=== PATIENT | female | born 1960 | race Caucasian/White ===

== ENCOUNTER 2017-10-24 17:16 | Emergency (ER) | payer SELFPAY ==
[2017-10-24 17:54] LABS: #Basophils 0.1 thou/uL (0.0-0.2); #Eosinphils 0.2 thou/uL (0.0-0.7); #Lymphocytes 2.9 thou/uL (1.20-3.40); #Monocytes 0.5 thou/uL (0.11-0.59); #Neutrophils 5.7 thou/uL (1.40-6.50); %Basophils 1.4 % (0.0-1.0); %Eosinophils 1.9 % (0.0-10.0); %Monocytes 4.8 % (0.0-10.0); %Neutrophils 60.9 % (42.0-75.0); Hemoglobin 13.2 g/dL (12.0-16.0); Mean Corpuscular HGB CONC 32.6 g/dL (32.0-36.0); Mean Corpuscular Hemoglobin 30.3 pg (27.0-31.0); Mean Platelet Volume 7.4 fL (7.4-10.4); Platelet Count 356 thou/uL (130-400); RBC Distribution Width 13.4 % (11.5-14.5); Red Blood Cell (RBC) Count 4.34 mill/uL (4.20-5.40); White Blood Cell (WBC) Count 9.4 thou/uL (4.8-10.8)
[2017-10-24 18:20] LABS: ALT (SGPT) 20 U/L (8-55); AST (SGOT) 21 U/L (5-34); Albumin 4.3 g/dL (3.5-5.0); Alkaline Phosphatase 124 U/L (40-150); Anion Gap 14 mmol/L (10-20); BUN (Urea Nitrogen) 13 mg/dL (9.8-20.1); Bilirubin, Total 0.4 mg/dL (0.2-1.2); Calc. Creatinine Clearance 0 mL/min (70-130); Calcium 9.8 mg/dL (7.8-10.44); Carbon Dioxide 24 mmol/L (22-29); Chloride 105 mmol/L (98-107); Estimated GFR-MDRD 59; Globulin 3.2 g/dL (2.4-3.5); Glucose 99 mg/dL (70-105); Potassium 4.2 mmol/L (3.5-5.1); Protein, Total 7.5 g/dL (6.0-8.3); Sodium 139 mmol/L (136-145)
[2017-10-24 18:21] LABS: Acetaminophen Less than 6.0 mcg/mL (10.0-30.0); Alcohol Less than 10 mg/dL (Less than 10); CK (CPK) 58 U/L (29-168); Salicylate Less than 8.0 mg/dL (15.0-30.0)
--- NOTE | 2017-10-25 07:35 | ULT ---
ULTRASOUND WITH DOPPLER DUPLEX VENOUS LOWER EXTREMITY RIGHT CPT: 32692 ICD-10-PCS: B54D HISTORY: Cramping, tremors, lower extremity pain. TECHNIQUE: Color flow Doppler, spectral waveform analysis of pulsed Doppler, and parks-scale imaging with arjun cody and augmentation, were used to evaluate the bilateral common femoral, femoral, popliteal, fiberglass container winding operator ior tibial, and superficial femoral, veins; and the proximal portions of the profunda femoral and gre ater saphenous, veins. FINDINGS: Appropriate compressibility and flow within the imaged deep vein system, without evidence of DVT. There is a heterogeneous mass of the right inguinal region greater than 5 cm. IMPRESSION: 1. No deep vein thrombosis identified within the imaged right lower extremity. 2. Heterogeneous soft tissue mass, prominent in size, at the right inguinal region. This could rela te to pathologically enlarged lymph node, although other etiology for soft tissue mass is not exclude d. Consider dedicated followup imaging for continued assessment. POS: LEONOR
== END 2017-10-24 20:36 | disposition home or self-care (01) ==
LOC: ERS 17:16
DX: R25.2 Cramp and spasm (principal); R59.1 Generalized enlarged lymph nodes; E03.9 Hypothyroidism, unspecified; F41.9 Anxiety disorder, unspecified; F32.9 Major depressive disorder, single episode, unspecified; F17.200 Nicotine dependence, unspecified, uncomplicated; Z71.6 Tobacco abuse counseling
CPT/HCPCS: 36415; 80053; 80307; 82550; 84443; 85025; 99406

== ENCOUNTER 2017-11-07 19:08 | Inpatient (IN) | payer SELFPAY ==
[~2017-11-07 19:08] MED LIST: ISOVUE-370 76%-LOCM 1 ML ONE
[2017-11-07] MEDS ORDERED: Dexamethasone 4 mg/ml Vial ONE (20:50)
[2017-11-07 21:25] LABS: #Basophils 0.1 thou/uL (0.0-0.2); #Eosinphils 0.3 thou/uL (0.0-0.7); #Monocytes 0.8 thou/uL (0.11-0.59); #Neutrophils 4.3 thou/uL (1.40-6.50); %Basophils 0.8 % (0.0-1.0); %Eosinophils 3.2 % (0.0-10.0); %Lymphocytes 42.2 % (21.0-51.0); %Monocytes 8.4 % (0.0-10.0); %Neutrophils 45.4 % (42.0-75.0); Hemoglobin 12.1 g/dL (12.0-16.0); Mean Corpuscular HGB CONC 34.5 g/dL (32.0-36.0); Mean Corpuscular Hemoglobin 30.7 pg (27.0-31.0); Mean Corpuscular Volume 89.2 fl (81.0-99.0); Mean Platelet Volume 7.7 fL (7.4-10.4); Platelet Count 337 thou/uL (130-400); RBC Distribution Width 12.8 % (11.5-14.5); Red Blood Cell (RBC) Count 3.94 mill/uL (4.20-5.40); White Blood Cell (WBC) Count 9.4 thou/uL (4.8-10.8)
[2017-11-07 21:46] LABS: ALT (SGPT) 24 U/L (8-55); AST (SGOT) 26 U/L (5-34); Alkaline Phosphatase 107 U/L (40-150); Anion Gap 14 mmol/L (10-20); BUN (Urea Nitrogen) 13 mg/dL (9.8-20.1); Bilirubin, Total 0.7 mg/dL (0.2-1.2); CK (CPK) 150 U/L (29-168); Calc. Creatinine Clearance 0 mL/min (70-130); Carbon Dioxide 24 mmol/L (22-29); Chloride 105 mmol/L (98-107); Estimated GFR-MDRD 59; Globulin 2.9 g/dL (2.4-3.5); Glucose 86 mg/dL (70-105); Protein, Total 6.9 g/dL (6.0-8.3); Sodium 140 mmol/L (136-145)
[2017-11-07 22:05] LABS: Free T4 (Free Thyroxine) 1.08 ng/dL (0.70-1.48)
[2017-11-07] MEDS ORDERED: Sodium Chloride 0.45% 1,000 ML IV SCH (23:45)
[2017-11-08] MEDS ORDERED: Mag-Al 1200 mg/1200 mg/30 ML UDCUP PO PRN (00:01)
[2017-11-08] MEDS ORDERED: Loperamide HCl 2 MG CAP PO PRN (00:01)
[2017-11-08] MEDS ORDERED: Milk Of Magnesia 30 ML UDCUP PO PRN (00:01)
[2017-11-08] MEDS ORDERED: Ondansetron HCl/PF 4 MG/2 ML Vial IVP PRN (00:01)
[2017-11-08] MEDS ORDERED: Senokot 8.6 MG TAB PO PRN (00:01)
--- NOTE | 2017-11-08 00:21 | CT ---
CT THORAX WITH IV CONTRAST CT ABDOMEN AND PELVIS WITH IV CONTRAST 11/07/17 HISTORY: Patient with intracranial mass. Patient was found on the floor at home. Altered mental status. Right arm weakness. Numbness and tingling in the extremities. COMPARISON: None available. CT THORAX: There is no evidence of lymphadenopathy. There is a very tiny pleural based nodular density anterior aspect of the left upper lobe measuring l ess than 4 mm. There is also a tiny nodular density in the left lower lobe which measures approximate ly 4 mm. No additional discrete pulmonary nodule or mass is seen bilaterally. There are ill-defined lytic lesions within the visualized right humeral diaphysis, one of which is co rtically based located medially and the second is seen at the junction of the proximal and middle one third of the right humerus which is also cortically based suggesting metastatic lesions. An ill-defi isreal sclerotic density is seen within the region of the right humeral head. There is also an area of h eterogeneity within the proximal aspect of the sternum which may represent metastatic lesion in this region as well. There are a few scattered sclerotic densities seen throughout the thoracic vertebral bodies. There are also a few lucencies within the vertebral bodies, the majority of which appear to b e at the end plates and may related to prominent Schmorl's nodes, although some of these are eccentri nadeem located. There is an area of sclerosis with lucency seen within the superior end plate of the T 4 vertebral body which could be related to a compression type fracture of indeterminate age. There is a small sclerotic density seen within the manubrium. CT ABDOMEN AND PELVIS WITH IV CONTRAST: FINDINGS: There is a 1.7 cm hypodense lesion in the right hepatic lobe near the dome of the liver as well as a hypodense lesion within the lateral segment of the left hepatic lobe measuring 1.7 cm. These low dens ity lesions do not have characteristics suggestive of cysts and are worrisome for metastatic lesions. The spleen, pancreas, bilateral adrenal glands, kidneys, and urinary bladder demonstrate a normal CT appearance. There is a right adnexal mass which does abut the uterus. This mass measures 5.3 cm x 4.1 cm in axial dimensions. A few scattered colonic diverticula are identified. The appendix is visualized and normal in caliber. There are prominent facet degenerative changes in the lower lumbar spine with suggestion of grade I a nterolisthesis of L5 on S1 although this is difficult to definitely determine on this exam. There is a sclerotic lesion within the posterior aspect left inferior pubic ramus measuring 1.2 cm. T here is also sclerotic density seen within lower lumbar vertebral bodies measuring less than 1 cm. There is an enlarged left inguinal lymph node measuring 3 cm with additional soft tissue densities in the proximal lateral right thigh also likely related to enlarged lymph nodes one which is not comple tely visualized. One of the masses\lymph nodes measures 1.6 cm. Vascular calcifications seen in the abdominal aorta and iliac arteries. IMPRESSION: 1. Right adnexal mass. Nonemergent pelvic ultrasound is recommended for further evaluation. Neop lastic process is a consideration. 2. Hypodense lesions within the right and left hepatic lobes worrisome for metastatic lesions. 3. Lytic lesions within the right humerus with scattered sclerotic densities seen throughout mul tiple thoracic and lumbar vertebral bodies as well as the left inferior pubic ramus. Some of these sc lerotic lesions have the appearance of bone islands. Additional sclerotic lesions are difficult to ch aracterize and given multiplicity, metastatic disease is a possibility. A bone scan is recommended fo r further evaluation. There is heterogeneity in the region of the sternum as well. 4. Enlarged left inguinal lymph node with additional soft tissue densities in the proximal later al right thigh also likely related to enlarged lymph nodes. 5. Degenerative changes of the lumbar spine with probable grade I anterolisthesis of L5 on S1; a lthough, this is difficult to visualize due to overlying structures on the multiskill operator image. POS: LEONOR
[2017-11-08 00:29] VITALS: BMI 26.4
[2017-11-08 02:09] LABS: HIV (1/2) Antibody/Antigen Non-Reactive (NonReactive); HIV 1/2 INDEX 0.35 S/CO (<1.00)
[2017-11-08] MEDS ORDERED: Potassium Chloride 20 MEQ TAB PO SCH (03:00)
[2017-11-08] MEDS ORDERED: Dexamethasone 4 MG TAB PO SCH (03:00)
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
[2017-11-08] MEDS: Levothyroxine Sodium 100 MCG TAB PO SCH (05:58)
[2017-11-08] MEDS ORDERED: Dexamethasone 4 mg/ml Vial SLOW IVP SCH (06:00)
--- NOTE | 2017-11-08 06:50 | CON ---
DATE OF CONSULTATION: 11/07/2017 ATTENDING PHYSICIAN: Dr. Edgar Wilson. HISTORY OF PRESENT ILLNESS: The patient is a 57-year-old female with a past medical histor y of hypothyroidism, depression, anxiety, psychiatric disorder, who presented to [place] [facility] afte r being found altered, hallucinating and incontinent by her neighbor. It is unclear how long the pa maritza has been this way. However, she reports that her symptoms began 3 days ago. She does report s he has had headache for approximately 1 month, but incontinence, generalized weakness, and hallucinat ions, she reports began 3 days ago. Her neighbor checked on her this afternoon which prompted EMS to bring her to the emergency department for further evaluation. CT head was done on arrival, which wa s notable for multiple intracranial lesions, the largest being in the right temporal region with sign ificant surrounding vasogenic edema as well as mass effect from right to left. Her lab work was also notable for hypokalemia and elevated creatinine consistent with dehydration. The neighbor reports t hat patient had no food in her home or running water. I am seeing the patient at the bedside. She is alert and oriented x3; however, she is easily distrac kendal by her active visual hallucinations which she describes as shadows in the background. Her pupils are equal and reactive. She has a normal cranial nerve exam. She is weak in the right upper extrem ity, right lower extremity 4/5 strength. No other focal motor deficits are appreciated. PAST MEDICAL HISTORY: Depression, anxiety, psychiatric disease. PAST SURGICAL HISTORY: The patient denies any prior surgeries. SOCIAL HISTORY: The patient reports she drinks socially. She is a former drug user. She lives at [facility] by herself, but reportedly has no food or running water. FAMILY HISTORY: Noncontributory. ALLERGIES: The patient is allergic to SULFA. REVIEW OF SYSTEMS: Per HPI. PHYSICAL EXAMINATION: VITAL SIGNS: BP is 115/70, pulse is 87, respiration rate is 18, temperature is 98.2. O2 patient 100 % on room air. CONSTITUTIONAL: Patient is sitting in the bed comfortably, in no acute distress. HEAD: Normocephalic, atraumatic. EYES: PERRLA. Extraocular movements are intact. ENT: Oral mucosa is dry. She has chapped lips. Abnormal dentition. NECK: Nontender to palpation. Free active range of motion. No meningismus or nuchal rigidity. RESPIRATORY: The patient is breathing comfortably. Symmetric chest expansion. CARDIOVASCULAR: Regular rate and rhythm. MUSCULOSKELETAL: Weakness is appreciated over the right upper extremity and right lower extremity 4/ 5 strength. Left upper extremity and left lower extremity had normal strength 5/5. NEUROLOGIC: She is A and O x4. She has normal speech. Normal cranial nerve exam. She is actively having visual hallucinations, which she describes as shadows. ASSESSMENT AND PLAN: The patient has multiple intracranial lesions of unclear etiology. The largest is in the right temporal region with surrounding vasogenic edema and appears to be causing him some mass effect with midline shift from right to left. We will plan to get the patient 10 of Decadron an d continue steroids. Patient should also be evaluated further with an MRI with and without contrast for further characterization of these some multiple lesions throughout. I have also ordered a CT [address], abdomen and pelvis as well as an echocardiogram. The patient also appears significantly dehydrat ed as she is then on her floor and we will continue to follow along and assist regarding her intracra nial pathology. Please reach out to the Neurosurgery Service for additional questions or concerns.
[2017-11-08 08:00] LABS: #Lymphocytes 1.4 thou/uL (1.20-3.40); #Neutrophils 5.2 thou/uL (1.40-6.50); %Basophils 0.7 % (0.0-1.0); %Eosinophils 0.2 % (0.0-10.0); %Lymphocytes 21.2 % (21.0-51.0); %Monocytes 0.6 % (0.0-10.0); %Neutrophils 77.4 % (42.0-75.0); Hemoglobin 12.1 g/dL (12.0-16.0); Mean Corpuscular HGB CONC 32.8 g/dL (32.0-36.0); Mean Corpuscular Hemoglobin 29.9 pg (27.0-31.0); Mean Corpuscular Volume 91.2 fl (81.0-99.0); Mean Platelet Volume 8.1 fL (7.4-10.4); Platelet Count 351 thou/uL (130-400); RBC Distribution Width 12.7 % (11.5-14.5); Red Blood Cell (RBC) Count 4.06 mill/uL (4.20-5.40); White Blood Cell (WBC) Count 6.7 thou/uL (4.8-10.8)
[2017-11-08 08:20] LABS: Anion Gap 16 mmol/L (10-20); BUN (Urea Nitrogen) 12 mg/dL (9.8-20.1); Calc. Creatinine Clearance 67 mL/min (70-130); Calcium 9.6 mg/dL (7.8-10.44); Carbon Dioxide 22 mmol/L (22-29); Chloride 105 mmol/L (98-107); Estimated GFR-MDRD 58; Glucose 136 mg/dL (70-105); Potassium 3.7 mmol/L (3.5-5.1); Sodium 139 mmol/L (136-145)
[2017-11-08] MEDS ORDERED: Famotidine/PF 20 mg/2ml Vial SLOW IVP SCH (09:00)
[2017-11-08] MEDS ORDERED: FLU VACC QS2017-18 36 mo. & older 0.5 ML SYRINGE IM ONE (09:00)
[2017-11-08] MEDS ORDERED: levETIRAcetam 500 MG TAB PO SCH (10:45)
[2017-11-08 11:32] LABS: Magnesium 1.6 mg/dL (1.6-2.6); Phosphorus 3.6 mg/dL (2.3-4.7)
--- NOTE | 2017-11-08 11:35 | CON ---
DATE OF CONSULTATION: 11/08/2017 REASON FOR CONSULTATION: Widespread metastatic malignancy. HISTORY OF PRESENT ILLNESS: The patient is a 57-year-old woman who presented to the emergency room w ith altered mental status and headache. She apparently does live alone, but was noted by family to h ave altered mentation. In the emergency room, imaging was performed in [place] and unfortunatel y, I have no access to this report at this time. However, there apparently was evidence of multiple brain masses consistent with metastatic malignancy. She was admitted for further evaluation and subs equent imaging has included a CT scan of the chest, abdomen, and pelvis, which showed two tiny subcen timeter nodules within the left lung. There were ill-defined lytic lesions scattered about the skele ton. There was a right adnexal mass measuring 5.3 x 4.1 cm. There were two hypodensities within the liver consistent with metastases. They were in the right hepatic lobe near the dome and the lateral aspect of the left hepatic lobe. Routine laboratory studies shows normal CBC and normal chemistries except for mildly low potassium, which have since been corrected. At this point, the patient has be en started on dexamethasone and has improved in regarding her mental status. I am asked to see the p atient to provide further management recommendations in the setting of probable metastatic malignancy . ALLERGIES: SULFA drugs. MEDICATIONS: Paxil and Synthroid. MEDICAL ILLNESS: There is history of hypothyroidism and depression. PAST SURGICAL HISTORY: Patient denies prior surgical procedures. SOCIAL HISTORY: Patient has abused drugs in the remote past. She has been a smoker and uses alcohol . FAMILY HISTORY: There is history of possible coronary artery disease, but the patient is vague in th is regard. REVIEW OF SYSTEMS: Except as mentioned in the history of present illness, she denies significant car diopulmonary, GI, , musculoskeletal, or neurological complaints. She claims to have a good appetit e and has not lost significant weight. PHYSICAL EXAMINATION: VITAL SIGNS: Temperature 97.4, pulse 90 and regular, respirations 20, blood pressure 91/61. GENERAL: Patient is a well-developed and well-nourished woman in no acute distress. She is appropri ate in conversation and has no focal neurological complaints or findings. HEENT: Extraocular movements are intact. Pupils are equal, round, and reactive to light. NECK: Supple. LUNGS: Clear. CARDIOVASCULAR: Regular rate and rhythm without murmur, rub, gallop or click. ABDOMEN: No tenderness, organomegaly, masses, bruits or ascites. EXTREMITIES: No clubbing, cyanosis or edema. SKIN: There is some excoriation and probable fungal infection below each breast in the intertriginou s area. No skin lesions suggestive of malignancy are seen. LYMPH: There is a large 3-4 cm firm right inguinal lymph node which is concerning for malignancy. I n addition, there are subcutaneous firm nodules in the lateral aspect of the right upper thigh. MUSCULOSKELETAL: No active arthritis. NEUROLOGIC: No focal findings. LABORATORY: See history of present illness. IMAGING: See history of present illness. IMPRESSION: Widespread metastatic malignancy, primary unclear. RECOMMENDATIONS: The malignancy involves brain, bone and liver. The physical examination shows a la rge right inguinal lymph node and subcutaneous nodules along the lateral aspect of the right upper th igh. These findings are quite suspicious for malignancy and would both be amenable to biopsy. I wou ld recommend biopsy of the right inguinal node with or without biopsies of the subcutaneous nodules. This could be done by General Surgery or Radiology. Thanks very much for allowing me to provide my recommendations. I will await a definitive diagnosis and follow with you.
[2017-11-08] MEDS: Dexamethasone 4 MG TAB PO SCH ×2 (13:15→18:01)
--- NOTE | 2017-11-08 13:56 | MRI ---
MRI OF THE BRAIN WITHOUT AND WITH CONTRAST: COMPARISON: None. HISTORY: Intracranial metastatic lesions. Hemorrhagic metastases. TECHNIQUE: Multiplanar, multisequence MRI images were obtained of the brain without and with IV contrast. FINDINGS: There are innumerable enhancing masses scattered throughout the brain. This involves both cerebral h emispheres and both cerebellar hemispheres. A significant percentage of these lesions have high T1 s ignal consistent with hemorrhagic metastasis. The largest lesion is seen in the right frontal lobe m easuring approximately 5.2 cm in greatest dimension. There is also susceptibility artifact within al l these lesions consistent with blood products and hemorrhagic metastases. There is shift of the mid line to the left anteriorly near the large frontal lesion. There is significant vasogenic edema surr ounding the lesions in both cerebral hemispheres. No downward herniation is seen. No hydrocephalus or interventricular hemorrhage is seen. The calvarium and overlying soft tissues are unremarkable. The visualized paranasal sinuses and mast oid air cells are well aerated. IMPRESSION: Innumerable hemorrhagic metastases to the brain parenchyma as above. POS: LEONOR
--- NOTE | 2017-11-08 17:04 | PDOC.PN ---
- Subjective Encounter Start Date: 11/08/17 Encounter Start Time: 15:00 Patient seen and examined. No new complaints. No overnight events. Pt pulled IV access. - Objective Resuscitation Status: Resuscitation Status FULL:Full Resuscitation MAR Reviewed: Yes Vital Signs & Weight: Vital Signs (12 hours) Temp Pulse Resp BP Pulse Ox 11/08/17 12:00 97.5 F L 96 18 112/75 97 11/08/17 08:30 97.5 F L 96 18 97 11/08/17 08:00 97.4 F L 90 20 91/61 100 Weight Weight 149 lb 8 oz Result Diagrams: 11/08/17 07:47 11/08/17 07:47 EKG Reviewed by me: Yes (Tele SR) Phys Exam - Physical Examination Constitutional: NAD HEENT: sclera anicteric Respiratory: no wheezing, no rales Symmetrical, scat rhonchi Cardiovascular: RRR, no rub no heaves/pulsations Gastrointestinal: soft, non-tender, no distention, positive bowel sounds Musculoskeletal: no edema Neurological: moves all 4 limbs Neuro/Psych - Cannot reliably assess due to current cognitive status Dx/Plan - Plan DVT proph w/SCDs IMPRESSION: 1. Encephalopathy due to brain mets - primary ? 2. Hypothyroidism 3. Hypokalemia 4. Diffuse metastasis 5. Anxiety/Depression 6. Other issues per H&P PLAN: * Oncology/NSG input appreciated * Change Dexamethasone/Keppra/Pepcid to PO * Consult Gen surg for possible inguinal node biopsy for diagnosis * Cont to monitor Review of Systems - Review of Systems Other: Cannot be reliably obtained due to current cognition. - Medications/Allergies Allergies/Adverse Reactions: Allergies Allergy/AdvReac Type Severity Reaction Status Date / Time tramadol Allergy Intermediate Emesis Verified 11/08/17 00:36 codeine Allergy Unverified 11/07/17 23:56 Medications: Current Medications Acetaminophen (Tylenol) 650 mg PO Q4H PRN PRN Reason: Headache/Fever or Pain Al Hydroxide/Mg Hydroxide (Maalox) 30 ml PO Q6H PRN PRN Reason: Heartburn or Indigestion Calcium/Vitamin D (Caltrate 600 + Vit D) 1 tab PO BID-[facility] Dexamethasone (Decadron) 4 mg PO Q6HR ISELA Last Admin: 11/08/17 13:15 Dose: 4 mg Famotidine (Pepcid) 20 mg PO BID ISELA Levetiracetam (Keppra) 500 mg PO BID [facility] Levothyroxine Sodium (Synthroid) 100 mcg PO 0600 ISELA Last Admin: 11/08/17 05:58 Dose: 100 mcg Loperamide HCl (Imodium) 2 mg PO PRN PRN PRN Reason: Diarrhea/Loose Stools Magnesium Hydroxide (Milk Of Magnesium) 30 ml PO DAILYPRN PRN PRN Reason: Constipation Ondansetron HCl (Zofran) 4 mg IVP Q6H PRN PRN Reason: Nausea/Vomiting Senna (Senokot) 2 tab PO HSPRN PRN PRN Reason: Constipation
[2017-11-08] MEDS: Calcium Carbonate + Vit D 1 TAB PO SCH (18:01)
[2017-11-08] MEDS: levETIRAcetam 500 MG TAB PO SCH (20:44)
[2017-11-08] MEDS: Famotidine 20 MG TAB PO SCH (20:44)
[2017-11-08] MEDS ORDERED: Famotidine 20 MG TAB PO SCH (21:00)
[2017-11-09] MEDS: Dexamethasone 4 MG TAB PO SCH ×4 (00:26→18:29)
[2017-11-09] MEDS: Levothyroxine Sodium 100 MCG TAB PO SCH (06:02)
[2017-11-09] MEDS: Potassium Chloride 20 MEQ TAB PO SCH (10:31)
[2017-11-09] MEDS: Famotidine 20 MG TAB PO SCH ×2 (10:31→22:00)
[2017-11-09] MEDS: levETIRAcetam 500 MG TAB PO SCH ×2 (10:31→22:00)
[2017-11-09] MEDS: Calcium Carbonate + Vit D 1 TAB PO SCH ×2 (10:31→18:29)
--- NOTE | 2017-11-09 13:38 | PDOC.PN ---
- Subjective Encounter Start Date: 11/09/17 Encounter Start Time: 14:52 CC: headache sub: pt c/o mild headache - Objective Resuscitation Status: Resuscitation Status FULL:Full Resuscitation Vital Signs & Weight: Vital Signs (12 hours) Temp Pulse Resp BP Pulse Ox 11/09/17 12:00 98 F 91 16 92/51 L 98 11/09/17 08:00 97.5 F L 80 16 106/65 99 11/09/17 04:00 97.4 F L 89 14 99/60 99 Weight Weight 149 lb 8 oz I&O: 11/08/17 11/09/17 11/10/17 06:59 06:59 06:59 Intake Total 480 Output Total 200 Balance 280 Result Diagrams: 11/08/17 07:47 11/08/17 07:47 Dx/Plan - Plan Constitutional: NAD HEENT: sclera anicteric Respiratory: no wheezing, no rales Symmetrical, scat rhonchi Cardiovascular: RRR, no rub no heaves/pulsations Gastrointestinal: soft, non-tender, no distention, positive bowel sounds Musculoskeletal: no edema Neurological: moves all 4 limbs Neuro/Psych - follwos commands, psoitive confusion intermitten Dx/Plan - Plan DVT proph w/SCDs IMPRESSION: 1. Encephalopathy due to brain mets - primary ? 2. Hypothyroidism 3. Hypokalemia 4. Diffuse metastasis 5. Anxiety/Depression 6. Other issues per H&P PLAN: * Oncology/NSG input appreciated * MRI positive for mets * Continue Dexamethasone/Keppra/Pepcid to PO * Cont to monitor * k level impoved * Lymph node biopsy in am * PRN tylenol for headache d/w pt & RN
--- NOTE | 2017-11-09 14:07 | CON ---
DATE OF CONSULTATION: 11/09/2017 CHIEF COMPLAINT: Malignancy of unknown primary. HISTORY: Ms. Campoverde is a 57-year-old woman, who presented to the hospital with altered mental status and a fall. By report, she was having right-sided weakness and confusion. She was unable to give a good history on admission, but a CT of the brain revealed multiple hemorrhagic masses consistent wit h metastasis, and she was started on Decadron with improvement in her mental status. Currently, she states that she has been having problems with feeling fuzzy and slow in her thinking for some time. She states that she has a mass in her right groin as well as subcutaneous masses of her right thigh, which have been present by her report for 5 years. She states that she asked her doctor about this, but was told that it was normal to develop lumps with age. She has been having terrible headaches as well. She states this has also been going on for a long time, although she cannot say exactly how l ana. She does not have any GI symptoms and denies any hematochezia, hematemesis, or melena. PAST MEDICAL HISTORY: Hypothyroidism, anxiety, and depression. PAST SURGICAL HISTORY: None. SOCIAL HISTORY: The patient does smoke and drink alcohol. Distant history of drug use. OUTPATIENT MEDICATIONS: Include Synthroid and Paxil. ALLERGIES: She reports an allergy to SULFA DRUGS. FAMILY HISTORY: Negative for malignancy. REVIEW OF SYSTEMS: Ten-system review of systems is negative except per HPI. The patient does still have a headache, but states that this has also improved on Decadron. PHYSICAL EXAMINATION: VITAL SIGNS: Patient is afebrile, heart rate 76, respirations 15, 96% saturated on room air, blood p ressure 94/58. GENERAL: Reveals a pleasant woman, in no acute distress, who appears older than her stated age. HEENT: Unremarkable. She has a rash around her mouth, which appears to be due to irritation from fr equent licking of her lips. She has extremely poor dentition and is almost edentulous. NECK: Negative for cervical or supraclavicular lymphadenopathy or thyroid masses. HEART: Regular in its rate and rhythm without murmurs, rubs, or gallops. LUNGS: Clear to auscultation bilaterally. ABDOMEN: Soft, nontender, nondistended. She does not have any palpable masses or hernia in the abdo jarrett area. EXTREMITIES: Warm and well perfused without edema. She has a large 4-5 cm hard lymph node in her ri ght groin as well as some hard subcutaneous masses of her right posterior thigh. Again, she states t hese have been present for 5 years. DIGITAL RECTAL EXAMINATION: Negative for masses or gross blood. NEUROLOGIC: The patient appears to be having problems with coordination, dropping food frequently as she feeds herself, and has difficulty turning herself in bed, but no focal findings noted. PSYCHIATRIC: Alert and cooperative and oriented to situation, but somewhat vague about the timeline of symptoms. LABORATORY DATA: White count is normal at 6.7, hematocrit 37, platelets 361. Electrolytes are unrem arkable. LFTs are normal. Free T4 is normal. HIV serology is negative. IMAGING: The patient underwent a brain MRI, which showed innumerable enhancing masses throughout bot h hemispheres as well as cerbellum, many with high T1 signal consistent with hemorrhage. She d oes have some midline shift to the left near a large right frontal lobe lesion and significant vasoge angelo edema. CT of the chest, abdomen, and pelvis showed some very small nodular densities in the lung , hypodense lesions in the right and left liver, a right adnexal mass abutting the uterus, enlarged i nguinal lymph node with some additional soft tissue densities, which are not completely visualized. OUTPATIENT MEDICATIONS: Include Synthroid. INPATIENT MEDICATIONS: Include Decadron, Pepcid, Keppra, Synthroid, and multiple p.r.n. ASSESSMENT: Metastatic malignancy of unknown primary. Patient has a very enlarged right inguinal ly mph node as well as some subcutaneous masses, both of which should be amenable with core biopsy with ultrasound guidance. When I saw the patient it was quite late in the evening on Friday and dakotah snyder was not in house. I will contact them tomorrow to see if they are able to process tissue as some of this should probably be sent fresh for flow cytometry. The lymph node is large enough and we shou ld be able to obtain adequate tissue with core biopsy, but if there is significant necrosis or additi onal tissue is necessary then lymph node excision can be considered; core biopsy can be performed eit her by myself or by Radiology, and will depend upon availability tomorrow of Pathology for processing and transport of tissue. Unfortunately, on [facility] transport of tissue for cytometry is sometimes no t possible, but it may be that the biopsies will be on Friday. The plan of care was discussed with the patient and she is in agreement with the plan. We will try to get her a diagnosis and as possible.
--- NOTE | 2017-11-09 14:13 | PRG ---
DATE OF SERVICE: 11/09/2017 SUBJECTIVE: A 57-year-old woman, who presented with altered mental status, after having been inacces sible to family members for several days. She has been treated for 24 hours with Decadron with some improvement, but still quite altered. Imaging of the brain reveals multiple intracranial lesions spread throughout both hemispheres with he morrhagic components. The imaging is consistent with metastases. The largest lesion is right fronta l and predominantly hemorrhagic causing meaningful mass effect. She has had several other findings on the CT of the chest, abdomen, and pelvis. IMPRESSION AND PLAN: The patient seems to have a disseminated malignancy. There are no good surgica l strategies for the treatment of the malignancy, although evacuation of the right frontal hematoma r emains an option if necessary. Given the setting of her poor prognosis, we will await pathologic exa mination from inguinal lymph node biopsy and a treatment plan for her underlying malignancy. If aggr essive treatment is decided, we can consider intervention for the right frontal hemorrhage, but hopef ully this will not be necessary.
[2017-11-09] MEDS: Acetaminophen 325 MG TAB PO PRN (15:24)
[2017-11-09] MEDS: Nicotine 14 MG PATCH TOP SCH (15:24)
--- NOTE | 2017-11-09 22:55 | PRG ---
DATE OF SERVICE: 11/09/2017 SUBJECTIVE: Ms. Campoverde is feeling okay today. She is still a little bit confused, recounting parts of the conversation she had with me as she does not remember having met me before; however, she seems to understand and remember the plan of care. I have spoken with Dr. Baldwin and with the pathologis t staff internist office based only and since flow cytometry can be done over the weekend, we are going to just biopsy her ingu inal lymph node tomorrow under ultrasound guidance. If we are unable to obtain adequate tissue that way, biopsy of the subcutaneous masses or excisional biopsy can be considered; however, I think we sh ould be able to obtain enough tissue for diagnosis. This was explained to the patient and she is agr eeable with the plan of care. I have left the nurse a list of supplies, and we will plan to do her b iopsy tomorrow morning.
[2017-11-10] MEDS: Dexamethasone 4 MG TAB PO SCH ×4 (01:00→20:37)
[2017-11-10] MEDS: Levothyroxine Sodium 100 MCG TAB PO SCH (05:27)
[2017-11-10 05:34] LABS: Prothrombin Time 13.7 SEC (12.0-14.7)
[2017-11-10 05:38] LABS: #Basophils 0.1 thou/uL (0.0-0.2); #Lymphocytes 1.9 thou/uL (1.20-3.40); #Monocytes 0.5 thou/uL (0.11-0.59); #Neutrophils 7.7 thou/uL (1.40-6.50); %Basophils 0.6 % (0.0-1.0); %Eosinophils 0.1 % (0.0-10.0); %Lymphocytes 18.9 % (21.0-51.0); %Monocytes 4.9 % (0.0-10.0); %Neutrophils 75.5 % (42.0-75.0); Hemoglobin 11.5 g/dL (12.0-16.0); Mean Corpuscular HGB CONC 32.7 g/dL (32.0-36.0); Mean Corpuscular Hemoglobin 30.2 pg (27.0-31.0); Mean Corpuscular Volume 92.4 fl (81.0-99.0); Mean Platelet Volume 8.7 fL (7.4-10.4); Platelet Count 328 thou/uL (130-400); RBC Distribution Width 13.1 % (11.5-14.5); White Blood Cell (WBC) Count 10.2 thou/uL (4.8-10.8)
[2017-11-10] MEDS ORDERED: Lidocaine 1% w/Epinephrine 1:100K 20 ML VIAL FS SCH (06:00)
[2017-11-10 06:19] LABS: Anion Gap 16 mmol/L (10-20); BUN (Urea Nitrogen) 15 mg/dL (9.8-20.1); Calc. Creatinine Clearance 76 mL/min (70-130); Calcium 9.4 mg/dL (7.8-10.44); Carbon Dioxide 22 mmol/L (22-29); Chloride 107 mmol/L (98-107); Estimated GFR-MDRD 66; Glucose 108 mg/dL (70-105); Potassium 3.7 mmol/L (3.5-5.1); Sodium 141 mmol/L (136-145)
[2017-11-10] MEDS: Potassium Chloride 20 MEQ TAB PO SCH (08:37)
[2017-11-10] MEDS: Calcium Carbonate + Vit D 1 TAB PO SCH ×2 (08:38→16:34)
[2017-11-10] MEDS: Famotidine 20 MG TAB PO SCH ×2 (08:38→20:36)
[2017-11-10] MEDS: levETIRAcetam 500 MG TAB PO SCH ×2 (08:38→20:37)
[2017-11-10] MEDS ORDERED: Sodium Chloride 0.9% 15 ML NEB ONE (12:45)
[2017-11-10] MEDS: Nicotine 14 MG PATCH TOP SCH (16:34)
--- NOTE | 2017-11-10 17:14 | PDOC.PN ---
- Subjective Encounter Start Date: 11/10/17 Encounter Start Time: 10:00 Patient seen and examined. No new complaints. No overnight events. Intermittent confusion. No new focal deficits. - Objective Resuscitation Status: Resuscitation Status FULL:Full Resuscitation MAR Reviewed: Yes Vital Signs & Weight: Vital Signs (12 hours) Temp Pulse Resp BP Pulse Ox 11/10/17 15:59 97.6 F 99 16 123/64 99 11/10/17 12:00 98.6 F 94 16 96/51 L 96 11/10/17 08:38 98 F 70 16 98 11/10/17 08:00 98 F 70 16 125/70 98 11/10/17 05:27 98 Weight Weight 149 lb 8 oz I&O: 11/09/17 11/10/17 11/11/17 06:59 06:59 06:59 Intake Total 480 480 540 Output Total 200 Balance 280 480 540 Result Diagrams: 11/10/17 05:00 11/10/17 05:00 EKG Reviewed by me: Yes (Tele SR) Phys Exam - Physical Examination Constitutional: NAD Respiratory: no wheezing, no rales, no rhonchi Cardiovascular: RRR, no rub Gastrointestinal: soft, non-tender, positive bowel sounds Musculoskeletal: no edema Neurological: moves all 4 limbs Dx/Plan - Plan DVT proph w/SCDs IMPRESSION: 1. Encephalopathy due to brain mets - primary ? 2. Hypothyroidism 3. Hypokalemia 4. Diffuse metastasis 5. Anxiety/Depression 6. Other issues per H&P PLAN: * Oncology/NSG/Surg following * Cont Dexamethasone/Keppra/Pepcid * Inguinal node biopsy later today * Cont to monitor * Cont current meds as below Review of Systems - Review of Systems Respiratory: negative: Cough, Dry, Shortness of Breath, Hemoptysis, SOB with Excertion, Pleuritic Pain, Sputum, Wheezing Cardiovascular: negative: chest pain, palpitations, orthopnea, paroxysmal nocturnal dyspnea, edema, light headedness - Medications/Allergies Allergies/Adverse Reactions: Allergies Allergy/AdvReac Type Severity Reaction Status Date / Time tramadol Allergy Intermediate Emesis Verified 11/08/17 00:36 codeine Allergy Unverified 11/07/17 23:56 Medications: Current Medications Acetaminophen (Tylenol) 650 mg PO Q4H PRN PRN Reason: Headache/Fever or Pain Last Admin: 11/09/17 15:24 Dose: 650 mg Al Hydroxide/Mg Hydroxide (Maalox) 30 ml PO Q6H PRN PRN Reason: Heartburn or Indigestion Calcium/Vitamin D (Caltrate 600 + Vit D) 1 tab PO BID-[facility] Last Admin: 11/10/17 16:34 Dose: 1 tab Dexamethasone (Decadron) 4 mg PO Q6HR [facility] Last Admin: 11/10/17 16:34 Dose: 4 mg Famotidine (Pepcid) 20 mg PO BID [facility] Last Admin: 11/10/17 08:38 Dose: 20 mg Levetiracetam (Keppra) 500 mg PO BID [facility] Last Admin: 11/10/17 08:38 Dose: 500 mg Levothyroxine Sodium (Synthroid) 100 mcg PO 0600 [facility] Last Admin: 11/10/17 05:27 Dose: 100 mcg Loperamide HCl (Imodium) 2 mg PO PRN PRN PRN Reason: Diarrhea/Loose Stools Magnesium Hydroxide (Milk Of Magnesium) 30 ml PO DAILYPRN PRN PRN Reason: Constipation Nicotine (Nicoderm Patch) 14 mg TOP 1400 [facility] Last Admin: 11/10/17 16:34 Dose: 14 mg Ondansetron HCl (Zofran) 4 mg IVP Q6H PRN PRN Reason: Nausea/Vomiting Potassium Chloride (K-Dur) 20 meq PO QAM-[facility] Last Admin: 11/10/17 08:37 Dose: 20 meq Senna (Senokot) 2 tab PO HSPRN PRN PRN Reason: Constipation
--- NOTE | 2017-11-10 19:21 | CON ---
DATE OF CONSULTATION: 11/10/2017 REASON FOR CONSULTATION: Ms. Campoverde is a 57-year-old female who appears to have a stage IV, metastat ic malignancy of unknown primary to the brain and bone and soft tissues. I was asked to see her for consideration of radiation therapy. HISTORY OF PRESENT ILLNESS: Ms. Campoverde apparently developed some mental status changes. She was bro ught to the emergency room where CT scan suggested numerous intracranial lesions. These were confirm ed by MRI of the contrast enhancing lesions with midline shift and surrounding vasogenic edema. Conc chela was for metastatic cancer. She was started on dexamethasone with some improvement in her mental status, although for the most part remains confused. She had a CT scan of the chest, abdomen, and pe lvis, which showed a possible lytic lesion in several areas of the bone including the sternum and lef t humerus. She had small several small nodules in the lung of unknown significance. She had several lesions in the liver concerning for metastasis. She had several sclerotic areas in the bone. There was a right adnexal mass. There was an enlarged left inguinal lymph node with several subcutaneous nodules as well. I have been asked to see her to discuss her options for treatment. Presently, she is a very poor historian. She remains very confused. However, she does occasionally answer questions appropriately. She states that she was having severe headaches, although these are much better with the steroids. She denies any pain at the present time. She voices no other complai nts. PAST MEDICAL HISTORY: 1. Hypothyroidism. 2. Depression. MEDICATIONS: Dexamethasone, Pepcid, Keppra, Synthroid, and Nicoderm patch. ALLERGIES: TRAMADOL, which causes emesis and CODEINE. She is also allergic to SULFA DRUGS. SOCIAL HISTORY: The patient was living by herself in [place], [place]. She does have a past histo ry of drug abuse. She also smoked in the past as well as drink alcohol. FAMILY HISTORY: She states her mother of cancer, but she is not able to tell me the type. REVIEW OF SYSTEMS: Twelve system review of systems was attempted, but was only poorly performed dionte use she is a poor historian. PHYSICAL EXAMINATION: VITAL SIGNS: Height 5 feet 3 inches, weight 149 pounds, blood pressure is 96/51, pulse is 94, respir ations are 16, temperature 98.4, O2 saturation is 96%. GENERAL: She is alert but not oriented to her situation or time. She only partially follows command s. Karnofsky performance status is 30%. She is not able to get out of bed and is not able to sit up . HEENT: Pupils equal, round, and react to light. Extraocular movements are intact. ENT: Oral cavit y and oropharynx normal without lesion or erythema. Palate elevates symmetrically. Gingiva is intac t. NECK: Supple, without cervical or supraclavicular adenopathy. No thyromegaly. Larynx midline. LUNGS: Breathing nonlabored. Clear to auscultation and percussion. CARDIOVASCULAR: Heart has regular rate and rhythm without murmur. No lower extremity edema. BACK: No tenderness on fist percussion of her spine. LYMPHATIC: No axillary adenopathy. In the right inguinal region, she has a 3-cm palpable lymph node . Left inguinal region is without lymphadenopathy. ABDOMEN: Bowel sounds present. Soft, nontender, nondistended, without mass or hepatosplenomegaly. Liver percusses to normal size. NEUROLOGIC: She is moving all 4 extremities equally. Strength is difficult to assess as she does no t cooperate well. Reflexes are diminished, but symmetrical. Again, she is not able to get out of be d. RADIOLOGIC: MRI of the brain and CT scan of the chest, abdomen, and pelvis were all personally revie wed. Again, there are numerous contrast enhancing lesions in the brain with midline shift and vasoge angelo edema. The largest lesion measures about 5.2 cm in size and appears predominantly cystic. She h as a couple of small pulmonary nodules, but no evidence of lung primary. She has multiple areas of b one metastasis. She has some soft tissue metastasis including right inguinal lymphadenopathy and adn exal pelvic mass. She has 2 lesions in the liver suggestive of liver metastasis. LABORATORY FINDINGS: CBC today revealed a white blood cell count of 10,200 with hemoglobin of 11.5, hematocrit of 35.1, and platelet count of 328,000. Chemistry group revealed normal electrolytes. He r liver function tests were normal. ASSESSMENT: Ms. Campoverde is a 57-year-old female with metastatic malignancy of unknown primary at this point. She has extensive metastatic disease including extensive brain metastasis, bone metastasis, and soft tissue metastasis, and liver metastasis. She remains confused and has a very poor performan ce status. She is basically unable to get out of bed at this time. PLAN: I agree with the tissue biopsy that is going to be done later today. Hopefully, this will yie ld pathology to determine where the primary is. This could be an occult lung primary with metastasis or the other possibility could even be metastatic melanoma. Regardless, it is likely that the progn osis is going to be quite poor. At this point, because of her poor performance status and because estee aguayo is confined to the bed, she is not a good candidate for radiation therapy to the brain for palliati on. Radiation would be unlikely to significantly improve her survival and there is also some concern as to whether she would even be able to cooperate with the treatment. I did discuss this with her. She had indicated that if there was no benefit to the treatment that she did not want to proceed wit h treatment anyway. However, she does have confusion. Nevertheless, with her poor performance statu s and her extensive metastatic disease and the unlikelihood that treatment would benefit her in any m eaningful way, I think her best option is likely going to be hospice care. I do agree with obtaining tissue diagnosis first to confirm what it is that we are treating. Unless she makes some meaningful clinical improvement, then most likely after that point hospice care would be her best treatment. Thank you for this interesting consultation.
--- NOTE | 2017-11-10 23:05 | OP ---
PROCEDURE: Ultrasound-guided core needle biopsy of right inguinal lymph node. PREOPERATIVE DIAGNOSIS: Multiple metastatic malignancies of unknown primary. POSTOPERATIVE DIAGNOSIS: Multiple metastatic malignancies of unknown primary. HISTORY: Ms. Campoverde is a 57-year-old woman with multiple brain mets, the primary cancer has yet to b e determined. She does have a large left inguinal lymph node which is amenable to percutaneous biops y, which was recommended for diagnosis. PROCEDURE IN DETAIL: After informed consent was obtained, the lymph node was immobilized under the u ltrasound probe. The skin was prepped with alcohol and local anesthesia infused. A small skin incis ion was made and the core biopsy needle advanced to the edge of the lymph node under direct ultrasoun d guidance. Four core biopsies were obtained, three were sent for permanent and one was sent fresh i n case. Flow cytometry was indicated. Pressure was held at the biopsy site and a Band-Aid was place d. The patient tolerated the procedure well. Estimated blood loss was minimal. There were no compl ications. SPECIMEN: Core biopsy specimens of right inguinal lymph node.
[2017-11-11] MEDS: Dexamethasone 4 MG TAB PO SCH ×4 (00:03→16:18)
[2017-11-11] MEDS: Levothyroxine Sodium 100 MCG TAB PO SCH (05:37)
[2017-11-11] MEDS: Calcium Carbonate + Vit D 1 TAB PO SCH ×2 (09:41→16:18)
[2017-11-11] MEDS: Famotidine 20 MG TAB PO SCH ×2 (09:41→20:29)
[2017-11-11] MEDS: Potassium Chloride 20 MEQ TAB PO SCH (09:41)
[2017-11-11] MEDS: levETIRAcetam 500 MG TAB PO SCH ×2 (09:42→20:29)
[2017-11-11] MEDS: Nicotine 14 MG PATCH TOP SCH (13:09)
--- NOTE | 2017-11-11 13:09 | PDOC.PN ---
- Subjective Encounter Start Date: 11/11/17 Encounter Start Time: 09:00 Patient seen and examined. No new complaints. No overnight events. Intermittent confusion per RN. No new focal deficits. - Objective Resuscitation Status: Resuscitation Status FULL:Full Resuscitation MAR Reviewed: Yes Vital Signs & Weight: Vital Signs (12 hours) Temp Pulse Resp BP Pulse Ox 11/11/17 12:00 98.1 F 70 16 134/65 97 11/11/17 08:00 97.5 F L 65 18 120/75 99 11/11/17 07:51 98.2 F 77 18 11/11/17 04:00 98.2 F 77 18 108/67 97 Weight Weight 149 lb 8 oz I&O: 11/10/17 11/11/17 11/12/17 06:59 06:59 06:59 Intake Total 480 540 540 Balance 480 540 540 Result Diagrams: 11/10/17 05:00 11/10/17 05:00 EKG Reviewed by me: Yes (Tele SR) Phys Exam - Physical Examination Constitutional: NAD Respiratory: no wheezing, no rhonchi Cardiovascular: RRR, no rub Gastrointestinal: soft, non-tender, positive bowel sounds Musculoskeletal: no edema Neurological: moves all 4 limbs Dx/Plan - Plan DVT proph w/SCDs IMPRESSION: 1. Encephalopathy due to brain mets - primary ? 2. Hypothyroidism 3. Hypokalemia 4. Diffuse metastasis 5. Anxiety/Depression 6. Other issues per H&P PLAN: * Await biopsy result * Oncology/NSG/Surg following * Cont Dexamethasone/Keppra/Pepcid * Cont to monitor * Cont current meds as below * Palliative care following Review of Systems - Review of Systems Respiratory: negative: Cough, Dry, Shortness of Breath, Hemoptysis, SOB with Excertion, Pleuritic Pain, Sputum, Wheezing Cardiovascular: negative: chest pain, palpitations, orthopnea, paroxysmal nocturnal dyspnea, edema, light headedness - Medications/Allergies Allergies/Adverse Reactions: Allergies Allergy/AdvReac Type Severity Reaction Status Date / Time tramadol Allergy Intermediate Emesis Verified 11/08/17 00:36 codeine Allergy Unverified 11/07/17 23:56 Medications: Current Medications Acetaminophen (Tylenol) 650 mg PO Q4H PRN PRN Reason: Headache/Fever or Pain Last Admin: 11/09/17 15:24 Dose: 650 mg Al Hydroxide/Mg Hydroxide (Maalox) 30 ml PO Q6H PRN PRN Reason: Heartburn or Indigestion Calcium/Vitamin D (Caltrate 600 + Vit D) 1 tab PO BID-[facility] Last Admin: 11/11/17 09:41 Dose: 1 tab Dexamethasone (Decadron) 4 mg PO Q6HR [facility] Last Admin: 11/11/17 13:06 Dose: 4 mg Famotidine (Pepcid) 20 mg PO BID [facility] Last Admin: 11/11/17 09:41 Dose: 20 mg Levetiracetam (Keppra) 500 mg PO BID [facility] Last Admin: 11/11/17 09:42 Dose: 500 mg Levothyroxine Sodium (Synthroid) 100 mcg PO 0600 [facility] Last Admin: 11/11/17 05:37 Dose: 100 mcg Loperamide HCl (Imodium) 2 mg PO PRN PRN PRN Reason: Diarrhea/Loose Stools Magnesium Hydroxide (Milk Of Magnesium) 30 ml PO DAILYPRN PRN PRN Reason: Constipation Nicotine (Nicoderm Patch) 14 mg TOP 1400 [facility] Last Admin: 11/11/17 13:09 Dose: 14 mg Ondansetron HCl (Zofran) 4 mg IVP Q6H PRN PRN Reason: Nausea/Vomiting Potassium Chloride (K-Dur) 20 meq PO QAM-[facility] Last Admin: 11/11/17 09:41 Dose: 20 meq Senna (Senokot) 2 tab PO HSPRN PRN PRN Reason: Constipation
[2017-11-12] MEDS: Dexamethasone 4 MG TAB PO SCH ×5 (01:04→23:34)
[2017-11-12] MEDS: Levothyroxine Sodium 100 MCG TAB PO SCH (06:10)
[2017-11-12] MEDS: Calcium Carbonate + Vit D 1 TAB PO SCH ×2 (10:27→17:20)
[2017-11-12] MEDS: Potassium Chloride 20 MEQ TAB PO SCH (10:27)
[2017-11-12] MEDS: levETIRAcetam 500 MG TAB PO SCH ×2 (10:28→20:17)
[2017-11-12] MEDS: Famotidine 20 MG TAB PO SCH ×2 (10:28→20:17)
[2017-11-12] MEDS: Nicotine 14 MG PATCH TOP SCH (12:38)
--- NOTE | 2017-11-12 20:27 | PDOC.PN ---
- Subjective Encounter Start Date: 11/12/17 Encounter Start Time: 13:00 Patient seen and examined. No new complaints. No overnight events - Objective Resuscitation Status: Resuscitation Status DNR:Do Not Resuscitate MAR Reviewed: Yes Vital Signs & Weight: Vital Signs (12 hours) Temp Pulse Resp BP BP Pulse Ox 11/12/17 19:26 97.1 F L 95 16 138/84 98 11/12/17 15:58 97.6 F 75 16 146/66 H 99 11/12/17 11:57 97.6 F 67 16 123/72 97 Weight Weight 149 lb 8 oz I&O: 11/11/17 11/12/17 11/13/17 06:59 06:59 06:59 Intake Total 540 1480 Balance 540 1480 Result Diagrams: 11/10/17 05:00 11/10/17 05:00 EKG Reviewed by me: Yes (Tele SR) Phys Exam - Physical Examination Constitutional: NAD HEENT: PERRLA Respiratory: no wheezing, no rhonchi Cardiovascular: RRR, no rub Gastrointestinal: soft, non-tender, positive bowel sounds Musculoskeletal: no edema Dx/Plan - Plan DVT proph w/SCDs IMPRESSION: 1. Encephalopathy due to brain mets/Melanoma 2. Hypothyroidism 3. Hypokalemia - replaced 4. Diffuse metastasis 5. Anxiety/Depression 6. Other issues per H&P PLAN: * Oncology/Rad-Onc recom Hospice. D/w Patient/father/Sister Cami - They agree with DNR. Will also start NH placement since patient is not safe to stay alone. No family or friends available to stay with her. Patient stated understanding. Patient is AAOx3 * Cont Dexamethasone/Keppra/Pepcid * Cont to monitor * Cont current meds as below * Palliative care following Review of Systems - Review of Systems Respiratory: negative: Cough, Dry, Shortness of Breath, Hemoptysis, SOB with Excertion, Pleuritic Pain, Sputum, Wheezing Cardiovascular: negative: chest pain, palpitations, orthopnea, paroxysmal nocturnal dyspnea, edema, light headedness, other Gastrointestinal: negative: Nausea, Vomiting, Abdominal Pain, Diarrhea, Constipation, Melena, Hematochezia - Medications/Allergies Allergies/Adverse Reactions: Allergies Allergy/AdvReac Type Severity Reaction Status Date / Time tramadol Allergy Intermediate Emesis Verified 11/08/17 00:36 codeine Allergy Verified 11/12/17 01:30 Medications: Current Medications Acetaminophen (Tylenol) 650 mg PO Q4H PRN PRN Reason: Headache/Fever or Pain Last Admin: 11/09/17 15:24 Dose: 650 mg Al Hydroxide/Mg Hydroxide (Maalox) 30 ml PO Q6H PRN PRN Reason: Heartburn or Indigestion Calcium/Vitamin D (Caltrate 600 + Vit D) 1 tab PO BID-[facility] Last Admin: 11/12/17 17:20 Dose: 1 tab Dexamethasone (Decadron) 4 mg PO Q6HR [facility] Last Admin: 11/12/17 17:21 Dose: 4 mg Famotidine (Pepcid) 20 mg PO BID [facility] Last Admin: 11/12/17 20:17 Dose: 20 mg Levetiracetam (Keppra) 500 mg PO BID [facility] Last Admin: 11/12/17 20:17 Dose: 500 mg Levothyroxine Sodium (Synthroid) 100 mcg PO 0600 [facility] Last Admin: 11/12/17 06:10 Dose: 100 mcg Loperamide HCl (Imodium) 2 mg PO PRN PRN PRN Reason: Diarrhea/Loose Stools Magnesium Hydroxide (Milk Of Magnesium) 30 ml PO DAILYPRN PRN PRN Reason: Constipation Nicotine (Nicoderm Patch) 14 mg TOP 1400 [facility] Last Admin: 11/12/17 12:38 Dose: 14 mg Ondansetron HCl (Zofran) 4 mg IVP Q6H PRN PRN Reason: Nausea/Vomiting Potassium Chloride (K-Dur) 20 meq PO QAM-[facility] Last Admin: 11/12/17 10:27 Dose: 20 meq Senna (Senokot) 2 tab PO HSPRN PRN PRN Reason: Constipation
[2017-11-13] MEDS: Levothyroxine Sodium 100 MCG TAB PO SCH (05:28)
[2017-11-13] MEDS: Dexamethasone 4 MG TAB PO SCH ×3 (05:28→17:36)
[2017-11-13] MEDS: Famotidine 20 MG TAB PO SCH ×2 (08:52→20:17)
[2017-11-13] MEDS: Calcium Carbonate + Vit D 1 TAB PO SCH ×2 (08:52→17:35)
[2017-11-13] MEDS: Potassium Chloride 20 MEQ TAB PO SCH (08:52)
[2017-11-13] MEDS: levETIRAcetam 500 MG TAB PO SCH ×2 (08:53→20:18)
[2017-11-13] MEDS: Nicotine 14 MG PATCH TOP SCH (15:08)
[2017-11-13] MEDS: Acetaminophen 325 MG TAB PO PRN (20:19)
--- NOTE | 2017-11-13 21:59 | PDOC.PN ---
- Subjective Encounter Start Date: 11/13/17 Encounter Start Time: 10:00 Patient seen and examined. No new complaints. No overnight events. No new focal deficits. - Objective Resuscitation Status: Resuscitation Status DNR:Do Not Resuscitate MAR Reviewed: Yes Vital Signs & Weight: Vital Signs (12 hours) Temp Pulse Resp BP Pulse Ox 11/13/17 19:42 98.0 F 75 16 125/71 100 11/13/17 16:00 99.1 F 76 20 130/76 100 11/13/17 15:30 99.1 F 76 20 100 11/13/17 12:00 98.6 F 88 14 106/70 95 Weight Weight 149 lb 8 oz I&O: 11/12/17 11/13/17 11/14/17 06:59 06:59 06:59 Intake Total 1480 200 Balance 1480 200 Result Diagrams: 11/10/17 05:00 11/10/17 05:00 Phys Exam - Physical Examination Constitutional: NAD Respiratory: no wheezing, no rhonchi Cardiovascular: RRR, no rub Gastrointestinal: soft, non-tender, positive bowel sounds Musculoskeletal: no edema Neurological: non-focal Dx/Plan - Plan DVT proph w/SCDs IMPRESSION: 1. Encephalopathy due to brain mets/Melanoma 2. Hypothyroidism 3. Hypokalemia - replaced 4. Diffuse metastasis 5. Anxiety/Depression 6. Other issues per H&P PLAN: * Cont Dexamethasone/Keppra/Pepcid * Add Colace * DC PO Pot chloride * AM labs * Await placement * Cont current meds as below * Palliative care following * Transfer to oncology Review of Systems - Review of Systems Respiratory: negative: Cough, Dry, Shortness of Breath, Hemoptysis, SOB with Excertion, Pleuritic Pain, Sputum, Wheezing Cardiovascular: negative: chest pain, palpitations, orthopnea, paroxysmal nocturnal dyspnea, edema, light headedness - Medications/Allergies Allergies/Adverse Reactions: Allergies Allergy/AdvReac Type Severity Reaction Status Date / Time tramadol Allergy Intermediate Emesis Verified 11/08/17 00:36 codeine Allergy Verified 11/12/17 01:30 Medications: Current Medications Acetaminophen (Tylenol) 650 mg PO Q4H PRN PRN Reason: Headache/Fever or Pain Last Admin: 11/13/17 20:19 Dose: 650 mg Al Hydroxide/Mg Hydroxide (Maalox) 30 ml PO Q6H PRN PRN Reason: Heartburn or Indigestion Calcium/Vitamin D (Caltrate 600 + Vit D) 1 tab PO BID-[facility] Last Admin: 11/13/17 17:35 Dose: 1 tab Dexamethasone (Decadron) 4 mg PO Q6HR [facility] Last Admin: 11/13/17 17:36 Dose: 4 mg Famotidine (Pepcid) 20 mg PO BID [facility] Last Admin: 11/13/17 20:17 Dose: 20 mg Levetiracetam (Keppra) 500 mg PO BID [facility] Last Admin: 11/13/17 20:18 Dose: 500 mg Levothyroxine Sodium (Synthroid) 100 mcg PO 0600 [facility] Last Admin: 11/13/17 05:28 Dose: Not Given Loperamide HCl (Imodium) 2 mg PO PRN PRN PRN Reason: Diarrhea/Loose Stools Magnesium Hydroxide (Milk Of Magnesium) 30 ml PO DAILYPRN PRN PRN Reason: Constipation Nicotine (Nicoderm Patch) 14 mg TOP 1400 [facility] Last Admin: 11/13/17 15:08 Dose: 14 mg Ondansetron HCl (Zofran) 4 mg IVP Q6H PRN PRN Reason: Nausea/Vomiting Potassium Chloride (K-Dur) 20 meq PO QAM-[facility] Last Admin: 11/13/17 08:52 Dose: 20 meq Senna (Senokot) 2 tab PO HSPRN PRN PRN Reason: Constipation
[2017-11-13] MEDS ORDERED: Simethicone Chewable 80 MG TAB PO PRN (22:27)
[2017-11-14] MEDS: Dexamethasone 4 MG TAB PO SCH ×3 (00:16→12:01)
[2017-11-14] MEDS: Levothyroxine Sodium 100 MCG TAB PO SCH (05:18)
[2017-11-14 06:25] LABS: #Lymphocytes 1.9 thou/uL (1.20-3.40); #Monocytes 0.6 thou/uL (0.11-0.59); #Neutrophils 8.5 thou/uL (1.40-6.50); %Basophils 0.3 % (0.0-1.0); %Eosinophils 0.2 % (0.0-10.0); %Lymphocytes 16.7 % (21.0-51.0); %Monocytes 5.6 % (0.0-10.0); %Neutrophils 77.2 % (42.0-75.0); Hemoglobin 12.5 g/dL (12.0-16.0); Mean Corpuscular Volume 90.9 fl (81.0-99.0); Mean Platelet Volume 7.8 fL (7.4-10.4); Platelet Count 272 thou/uL (130-400); RBC Distribution Width 12.9 % (11.5-14.5); Red Blood Cell (RBC) Count 4.15 mill/uL (4.20-5.40); White Blood Cell (WBC) Count 11.1 thou/uL (4.8-10.8)
[2017-11-14 06:35] LABS: Anion Gap 15 mmol/L (10-20); BUN (Urea Nitrogen) 23 mg/dL (9.8-20.1); Calc. Creatinine Clearance 59 mL/min (70-130); Calcium 9.2 mg/dL (7.8-10.44); Carbon Dioxide 26 mmol/L (22-29); Chloride 102 mmol/L (98-107); Estimated GFR-MDRD 50; Glucose 140 mg/dL (70-105); Potassium 3.9 mmol/L (3.5-5.1); Sodium 139 mmol/L (136-145)
[2017-11-14 08:15] VITALS: TEMP 97.2
[2017-11-14] MEDS ORDERED: Docusate 100 MG CAP PO SCH (09:00)
[2017-11-14] MEDS: levETIRAcetam 500 MG TAB PO SCH (09:56)
--- NOTE | 2017-11-14 09:56 | PDOC.PN ---
- Subjective Encounter Start Date: 11/14/17 Encounter Start Time: 08:20 states she is doing well. denies any complaints. no acute night events - Objective Resuscitation Status: Resuscitation Status DNR:Do Not Resuscitate Vital Signs & Weight: Vital Signs (12 hours) Temp Pulse Resp BP BP Pulse Ox 11/14/17 07:45 97.2 F L 56 L 16 138/70 98 11/13/17 23:41 97.9 F 58 L 16 125/65 98 Weight Weight 149 lb 8 oz I&O: 11/13/17 11/14/17 11/15/17 06:59 06:59 06:59 Intake Total 200 700 Balance 200 700 Result Diagrams: 11/14/17 06:15 11/14/17 06:15 Phys Exam - Physical Examination HEENT: PERRLA, moist MMs, sclera anicteric Neck: no nodes, no JVD, supple, full ROM Respiratory: no wheezing, no rales, no rhonchi Cardiovascular: RRR, no significant murmur Gastrointestinal: soft, non-tender Musculoskeletal: no edema, pulses present Neurological: non-focal, normal sensation, moves all 4 limbs Psychiatric: normal affect, A&O x 3 Skin: no rash, normal turgor, cap refill <2 seconds Dx/Plan (1) Metastatic melanoma Code(s): C79.9 - SECONDARY MALIGNANT NEOPLASM OF UNSPECIFIED SITE Status: Acute (2) Encephalopathy acute Code(s): G93.40 - ENCEPHALOPATHY, UNSPECIFIED Status: Acute (3) Hypokalemia Code(s): E87.6 - HYPOKALEMIA Status: Acute (4) Hypothyroidism Code(s): E03.9 - HYPOTHYROIDISM, UNSPECIFIED Status: Acute - Plan cont current plan of care, plan discussed w/ family, manager social work * . pending placement for [facility] Will transion to hospice once patient is there as the patient will be with [facility] supportive care mgmt
[2017-11-14] MEDS: Famotidine 20 MG TAB PO SCH (09:57)
[2017-11-14] MEDS: Calcium Carbonate + Vit D 1 TAB PO SCH (09:58)
[2017-11-14 11:43] VITALS: BP 120/62
--- NOTE | 2017-11-14 20:11 | DIS ---
DISCHARGE DIAGNOSES: 1. Acute encephalopathy due to metastatic melanoma to the brain. 2. Hypothyroidism. 3. Hypokalemia. 4. Diffuse metastasis. 5. Anxiety/depression. HOSPITAL COURSE: While patient was in the hospital, patient had imaging which showed significant met astasis of unknown origin. After full examination, the patient was found to have lymphadenopathy wit h an assessable area of the right inguinal region. The patient had a biopsy done of that region whic h showed melanoma which caused the metastatic disease. Discussion was had with further specialty abo ut the plan; however, due to the patient's significant metastasis, it was felt that aggressive measur es cannot be achieved at this time and the most likely option for her was hospice. This was explaine d to the patient for which the patient understood. The patient's metastasis has significantly improv ed. It was discussed that the patient would require snf placement for which Social Work was consulted to help facilitate discharge planning. This was eventually done today. She will be trans itioned over to hospice while there. Due to no further interventions required at this time and the p atient being hemodynamically stable, we were comfortable discharging the patient to the snf. This was discussed with the patient, her entirety and all questions were answered prior to discharg e. DISPOSITION: To snf. DISCHARGE CONDITION: Improved since first came in. DISCHARGE ACTIVITY: As tolerated. DISCHARGE DIET: As tolerated. DISCHARGE MEDICATIONS: Please see home reconciled medication list. DISCHARGE PLAN: Discharge plan was greater than 30 minutes.
== END 2017-11-14 13:11 | DRG 40 ==
LOC: ERS 19:08 → T4-A 22:29 → 2SE 23:43 → ONC 11-13 15:22
PROVIDERS: ADMIT Internal Medicine; ATTEND Internal Medicine
PROC: 07BH3ZX Excision of Right Inguinal Lymphatic, Percutaneous Approach, Diagnostic (ICD-10-PCS; principal; 2017-11-10)
DX: C79.31 Secondary malignant neoplasm of brain (principal); G93.6 Cerebral edema; I62.9 Nontraumatic intracranial hemorrhage, unspecified; G13.1 Other systemic atrophy primarily affecting central nervous system in neoplastic disease; C78.7 Secondary malignant neoplasm of liver and intrahepatic bile duct; C79.51 Secondary malignant neoplasm of bone; E86.0 Dehydration; C80.1 Malignant (primary) neoplasm, unspecified; E03.9 Hypothyroidism, unspecified; Z88.2 Allergy status to sulfonamides; F41.9 Anxiety disorder, unspecified; F32.9 Major depressive disorder, single episode, unspecified; F17.210 Nicotine dependence, cigarettes, uncomplicated; F19.11 Other psychoactive substance abuse, in remission; E87.6 Hypokalemia; Z51.5 Encounter for palliative care; Z88.5 Allergy status to narcotic agent; Z66 Do not resuscitate; T24.009A Burn of unspecified degree of unspecified site of unspecified lower limb, except ankle and foot, initial encounter; X08.8XXA Exposure to other specified smoke, fire and flames, initial encounter
CPT/HCPCS: 36415; 70553; 71260; 74177; 80048; 83735; 84100; 84439; 85025; 85610; 87389; 88184; 88305; 88341; 88342; 93306; 94760; 96374; A4218; J1100; J1953; J2001; J8540; S0028